=== PATIENT | male | born 1945 | race Caucasian/White ===

== ENCOUNTER → 2016-02-16 | Outpatient (CLI) | payer BC ==
[~2016-02-16] MED LIST: AMPI500C9 PO; BENZ10LO15 TOP; CLIN1GEL TOP; HYDR-3419 PO; MULT-506 PO; TAMS0.4C38 PO; [UNRECOGNIZED DRUG - OTHER] EXT
--- NOTE | 2016-02-16 08:40 | DIAGNOSTIC IMAGING REPORT ---
RENAL ULTRASOUND CLINICAL HISTORY: Cyst of right kidney. COMPARISON STUDY: CT of the abdomen and pelvis July 26, 2015 and KUB September 20, 2015. TECHNIQUE: Sonography of the kidneys and the urinary bladder was performed. FINDINGS: The right kidney measures 10.5 cm in maximal dimension and the left measures 10.7 cm. There is no hydronephrosis. There is a suspected 4 mm left renal calculus. Note is made of a 1.5 cm cystic lesion within septation within the midpole pf the right kidney. This represents the lesion shown on CT of July 26, 2015. This is consistent with a cyst. Neither ureteral jet was identified. Renal echogenicity, size and cortical thickness are normal. IMPRESSION: 1. No hydronephrosis. 2. 1.5 cm right renal cyst which contains a thin septation. 3. Left-sided nephrolithiasis. Electronically signed by: Aniceto Mackey M.D. 02/16/2016 8:38 AM
--- NOTE | 2016-02-16 09:12 | DIAGNOSTIC IMAGING REPORT ---
KUB HISTORY: Kidney stones. N28.1 Cyst of right [id number] COMPARISON: Renal ultrasound 02/16/2016. KUB 09/20/2015. FINDINGS: The bowel gas pattern is unremarkable. There are no dilated loops of small bowel to suggest an obstruction. Multiple stones within the left kidney which are predominantly located within the lower pole. This is not significantly changed. The dominant stone measures 4 mm. A cluster of calcifications inferior to the right L2 transverse process may be located within the mesentery. This appears to be a punctate stone within the right kidney. No ureteral calculi. Calcifications in the deep pelvis likely represent phleboliths. This remains unchanged. No pneumoperitoneum or pneumatosis. IMPRESSION: Stable bilateral nephrolithiasis. No ureteral calculi. Electronically signed by: Baljeet Montero M.D. 02/16/2016 9:10 AM
== END | disposition home or self-care (01) ==
LOC: C.ULTR 08:06
PROVIDERS: ATTEND Urology
DX: N28.1 Cyst of kidney, acquired (principal); N20.0 Calculus of kidney

== ENCOUNTER → 2016-04-11 | Outpatient (CLI) | payer BC | END | disposition home or self-care (01) | LOC: C.LAB1850 09:49 | PROVIDERS: ATTEND Internal Medicine Nephrology | DX: N20.0 Calculus of kidney (principal) ==

== ENCOUNTER → 2016-07-19 | Outpatient (CLI) | payer BC, OTHER ==
[~2016-07-19] MED LIST changes: -TAMS0.4C38 PO
--- NOTE | 2016-07-19 16:08 | DIAGNOSTIC IMAGING REPORT ---
KUB CLINICAL HISTORY: N20.1 Ureteric stone BE DONE EITHER THE NIGHT BEFORE OR MORNING nephrocalcinosis COMPARISON STUDY: 02/16/2016 FINDINGS: Stable left-sided nephrocalcinosis. Right kidney is secured overlying bowel content. Unchanging vascular calcifications of the soft tissue pelvic region. IMPRESSION: Unchanged exam with multiple left renal calcifications. The right kidney is obscured. Electronically signed by: Damion Garcia M.D. 07/19/2016 4:07 PM Dictated Date/Time: 07/19/2016 4:06 PM
== END | disposition home or self-care (01) ==
LOC: C.RAD 15:22
PROVIDERS: ATTEND Urology
DX: N20.0 Calculus of kidney (principal); N20.1 Calculus of ureter

== ENCOUNTER → 2016-07-20 | Day surgery (SDC) | payer BC ==
[2016-07-12 10:55] VITALS: Ht 171.5 cm; Wt 68.2 kg
[~2016-07-20] VITALS: Ht 171.5 cm; Wt 68.2 kg
[~2016-07-20] MED LIST changes: +ATROPINE SULFATE 0.1 MG/ML 5ML SYR IV PRN; +CIPROFLOXACIN 400MG / D5W IV SCH; +DEXAMETHASONE SOD INJ 4 MG/ML VIAL IV PRN; +DEXAMETHASONE SOD INJ 4 MG/ML VIAL ONE; +EpHEDrine SULFATE INJ 50 MG/ML AMP IV PRN; +FENTANYL CITRATE INJ 50 MCG/1 ML 2 ML VIAL IV PRN; +FENTANYL CITRATE INJ 50 MCG/1 ML 2 ML VIAL ONE; +KETOROLAC TROMETHAMINE 30 MG/ML VIAL IV. PRN; +LABETALOL HCL IV 5 MG/ML 20ML IV PRN; +LACTATED RINGER'S 1000ML 1,000 ML IV SCH; +LIDOCAINE HCL 2% 2 ML VIAL (20MG/ML) ONE; +METOCLOPRAMIDE HCL INJ 5 MG/ML 2 ML VIAL IV PRN; +MIDAZOLAM HCL 1 MG/ML 2ML VIAL ONE; +MoRPHine SULFATE 10 MG/ML CARP/VIAL IV PRN; +ONDANSETRON INJ 2 MG/ML 2 ML VIAL IV PRN; +ONDANSETRON INJ 2 MG/ML 2 ML VIAL ONE; +PHENYLEPHRINE 100MCG/ML 5ML SYR IV PRN; +PROPOFOL IV EMULSION 10 MG/ML 20 ML VIAL IV ONE
--- NOTE | 2016-07-20 07:48 | History & Physical Bridge - SC ---
H&P Re-Evaluation Bridge Note: I have examined the patient, reviewed the History & Physical and in the interval since the performance of the History & Physical I have noted the following changes of clinical significance: No changes noted
--- NOTE | 2016-07-20 08:43 | [facility] Post Operative Brief Note ---
Immediate Operative Summary Operative Date Jul 20, 2016. Pre-Operative Diagnosis Left Renal Calculi Post-Operative Diagnosis Same Procedure(s) Performed Left Extracorporeal Shock Wave Lithotripsy - Renal Surgeon Dr. Muro Banner Painter Surgeon(s) None Estimated Blood Loss 0 mL Findings stones appeared to fragment Specimens None
--- NOTE | 2016-07-20 08:44 | Discharge Instructions-SurgCtr ---
Discharge Instructions Date of Service Jul 20, 2016. Visit Reason for Visit: Left Stones Discharge Discharge Diagnosis / Problem: post op l eswl Discharge Goals Goal(s): Increase independence, Improve disease control Activity Recommendations Activity Limitations: resume your previous activity Anesthesia . Post Anesthesia Instructions: If you have had General Anesthesia or IV Sedation: * Do not drive today. * Resume driving when surgeon permits. * Do not make important decisions or sign legal documents today. * Call surgeon for: 1. Temperature elevations greater than 101 degrees F. 2. Uncontrollable pain. 3. Excessive bleeding. 4. Persistent nausea and vomiting. 5. Medication intolerance (nausea, vomiting or rash). * For nausea and vomiting use only clear liquids such as: tea, soda, bouillon until nausea subsides, then gradually increase diet as tolerated. * If you have any concerns or questions, call your surgeon's office. If physician is unavailable and it is an emergency, call 911 or go to the nearest emergency room. . Diet Recommendations Home Diet: resume previous diet Procedures Procedures Performed: Left Extracorporeal Shock Wave Lithotripsy - Renal Pending Studies Studies pending at discharge: no Medical Emergencies . Who to Call and When: Medical Emergencies: If at any time you feel your situation is an emergency, please call 911 immediately. . Non-Emergent Contact Non-Emergency issues call your: Urologist . . "Provider Documentation" section prepared by [facility]. .
[2016-07-20 10:08] VITALS: BP 122/64; PULSE 62; TEMP 36.6; O2SAT 98
--- NOTE | 2016-07-20 10:21 | Anesthesia Progress Nt - [facility] ---
Anesthesia Post Op Note Date & Time Jul 20, 2016 at 10:21 Vital Signs Pain Intensity: 0 Vital Signs Past 12 Hours Date Time Temp Pulse Resp B/P (MAP) Pulse Ox O2 Delivery O2 Flow Rate FiO2 07/20/16 10:08 36.6 62 14 122/64 (83) 98 Room Air 07/20/16 09:55 36.5 52 14 122/78 (93) 97 Room Air 07/20/16 09:23 62 13 07/20/16 09:23 55 13 98 07/20/16 09:23 36.6 Room Air 07/20/16 09:22 121/63 07/20/16 09:18 65 1 07/20/16 09:18 64 1 96 07/20/16 09:17 111/67 07/20/16 09:13 60 1 97 07/20/16 09:13 61 1 07/20/16 09:12 67 11 114/68 96 07/20/16 09:12 66 11 07/20/16 09:07 67 9 07/20/16 09:07 66 9 122/63 95 07/20/16 09:02 69 0 07/20/16 09:02 69 0 117/64 95 07/20/16 08:57 71 4 115/67 95 07/20/16 08:57 71 4 07/20/16 08:52 36.6 76 18 116/62 95 Room Air 07/20/16 06:30 36.5 56 16 112/66 (81) 96 Room Air Notes Mental Status: alert / awake / arousable, participated in evaluation Pt Amnestic to Procedure: Yes Nausea / Vomiting: adequately controlled Pain: adequately controlled Airway Patency, RR, SpO2: stable & adequate BP & HR: stable & adequate Hydration State: stable & adequate Anesthetic Complications: no major complications apparent
--- NOTE | 2016-07-20 11:18 | OPERATIVE REPORT ---
DATE OF OPERATION: 07/20/2016 PREOPERATIVE DIAGNOSIS: Left renal stones. POSTOPERATIVE DIAGNOSIS: Same. PROCEDURE PERFORMED: Left ESWL. SURGEON: Dr. Muro. INDICATIONS: The patient is a 70-year-old male who previously passed a stone who presents now with elective lithotripsy of left renal stones. DESCRIPTION OF THE PROCEDURE: The patient was taken to the operating room and placed in supine position. He had Venodyne stockings placed and was given antibiotics preoperatively, then he was given general anesthesia. The stones were visualized in 2 views. He was given 2500 shocks, the majority at level 4, but some at level 5 as well. The stones appeared to disappear towards the end of the procedure so he had been placed at level 5 and switched back to level 4 in the area where the stones were. At the end, there was no obvious stones visible on fluoroscopy. The patient was transferred to the recovery room in stable condition. I attest to the content of the Intraoperative Record and any orders documented therein. Any exception s are noted below.
== END | disposition home or self-care (01) ==
LOC: X.SURG 06:04
PROVIDERS: ATTEND Urology
DX: N20.0 Calculus of kidney (principal); N40.1 Benign prostatic hyperplasia with lower urinary tract symptoms; N13.8 Other obstructive and reflux uropathy; Z87.442 Personal history of urinary calculi; Z82.49 Family history of ischemic heart disease and other diseases of the circulatory system; Z83.3 Family history of diabetes mellitus; Z83.79 Family history of other diseases of the digestive system; Z84.1 Family history of disorders of kidney and ureter

== ENCOUNTER → 2016-07-25 | Outpatient (CLI) | payer BC, OTHER ==
[~2016-07-25] MED LIST changes: -ATROPINE SULFATE 0.1 MG/ML 5ML SYR IV PRN; -CIPROFLOXACIN 400MG / D5W IV SCH; -DEXAMETHASONE SOD INJ 4 MG/ML VIAL IV PRN; -DEXAMETHASONE SOD INJ 4 MG/ML VIAL ONE; -EpHEDrine SULFATE INJ 50 MG/ML AMP IV PRN; -FENTANYL CITRATE INJ 50 MCG/1 ML 2 ML VIAL IV PRN; -FENTANYL CITRATE INJ 50 MCG/1 ML 2 ML VIAL ONE; -KETOROLAC TROMETHAMINE 30 MG/ML VIAL IV. PRN; -LABETALOL HCL IV 5 MG/ML 20ML IV PRN; -LACTATED RINGER'S 1000ML 1,000 ML IV SCH; -LIDOCAINE HCL 2% 2 ML VIAL (20MG/ML) ONE; -METOCLOPRAMIDE HCL INJ 5 MG/ML 2 ML VIAL IV PRN; -MIDAZOLAM HCL 1 MG/ML 2ML VIAL ONE; -MoRPHine SULFATE 10 MG/ML CARP/VIAL IV PRN; -ONDANSETRON INJ 2 MG/ML 2 ML VIAL IV PRN; -ONDANSETRON INJ 2 MG/ML 2 ML VIAL ONE; -PHENYLEPHRINE 100MCG/ML 5ML SYR IV PRN; -PROPOFOL IV EMULSION 10 MG/ML 20 ML VIAL IV ONE
--- NOTE | 2016-07-25 17:29 | DIAGNOSTIC IMAGING REPORT ---
KUB CLINICAL HISTORY: URETERIC STONE nephrocalcinosis COMPARISON STUDY: 02/16/2016 FINDINGS: Poor definition of both kidneys due to extensive overlying bowel content. Potential punctate calcifications scattered throughout the left kidney. Nonspecific MR for calcifications to the right of the L2-L3 level of the lumbar spine. I cannot exclude completely possibility of a ureteral calculus. Several pelvic vascular calcifications. IMPRESSION: 1. Poor definition of the kidneys due to extensive overlying bowel content. 2. Scattered punctate calcifications possibly of the left kidney. 3. Potential ureteral calcifications versus bowel content overlying the course of the proximal right ureter Electronically signed by: Damion Garcia M.D. 07/25/2016 5:28 PM Dictated Date/Time: 07/25/2016 5:26 PM
== END | disposition home or self-care (01) ==
LOC: C.RAD 16:59
PROVIDERS: ATTEND Urology
DX: E83.59 Other disorders of calcium metabolism (principal); N29 Other disorders of kidney and ureter in diseases classified elsewhere

== ENCOUNTER → 2017-01-29 | Outpatient (CLI) | payer BC, OTHER ==
[~2017-01-29] MED LIST changes: -HYDR-3419 PO
--- NOTE | 2017-01-29 09:55 | DIAGNOSTIC IMAGING REPORT ---
KUB CLINICAL HISTORY: 71 years-old Male presenting with N52.9 Organic [id number]. TECHNIQUE: Single supine view of the abdomen was obtained. COMPARISON: 07/25/[address] from 07/26/2015. FINDINGS: Marked stool burden throughout the colon. Paucity of small bowel gas, nonspecific. No gross pneumoperitoneum. Allowing for bowel gas and stool, redemonstration of punctate foci in the left kidney consistent with calculi. No radiographic evidence of right renal calculi. Persistent calcifications in the region of the proximal right ureter at the level of L3-4. These have not changed in configuration since the prior exam and do not have a clear correlate on the prior CT from last year. Right pelvic phlebolith unchanged. Dextrocurvature of the lumbar spine. IMPRESSION: 1. Punctate left renal calculi unchanged. 2. Calcification projecting at the L3-4 level along the expected course of the possible right ureter is also unchanged in configuration and is indeterminate. Electronically signed by: Aron Kumar M.D. 01/29/2017 9:53 AM Dictated Date/Time: 01/29/2017 9:50 AM
== END | disposition home or self-care (01) ==
LOC: C.RAD 09:04
PROVIDERS: ATTEND Urology
DX: N52.9 Male erectile dysfunction, unspecified (principal)